=== PATIENT | female | born 1955 | race Caucasian/White ===

== ENCOUNTER 2018-06-03 17:23 | Inpatient (IN) ==
--- NOTE | 2018-06-03 18:05 | XR ---
EXAM DATE: 06/03/2018 5:59 PM EST AGE/SEX: 63 years / Female INDICATIONS: Right wrist pain after falling today. CLINICAL DATA: This is the patient's initial encounter. Patient reports that signs and symptoms have been present for 1 day and indicates a pain score of 9/10. MEDICAL/SURGICAL HISTORY: None. None. COMPARISON: No prior exams available for comparison. FINDINGS: A cast overlies the right forearm and wrist. Acute comminuted minimally displaced fracture of the rig ht distal radius is noted. There is involvement of the articular surface. There is also an acute frac ture involving the ulnar styloid process. CONCLUSION: 1. Acute comminuted minimally displaced fracture of the right distal radius with involvement of the articular surface. 2. Acute fracture involving the ulnar styloid process. Electronically signed by: Micheal Foster MD 06/03/2018 6:03 PM EST
--- NOTE | 2018-06-03 18:53 | XR ---
EXAM DATE: 06/03/2018 6:51 PM EST AGE/SEX: 63 years / Female INDICATIONS: Evaluate for pneumonia, pneumothorax and communicable diseases. Pre-op for right wrist surgery. CLINICAL DATA: This is the patient's initial encounter. Patient reports that signs and symptoms have been present for 1 day and indicates a pain score of 0/10. MEDICAL/SURGICAL HISTORY: Chronic obstructive pulmonary disease. Smoker. None. COMPARISON: No prior exams available for comparison. FINDINGS: A single AP view of the chest demonstrates the lungs to be symmetrically aerated without evidence of mass, infiltrate or effusion. The cardiomediastinal contours are unremarkable. Osseous structures a re intact. CONCLUSION: Negative examination. Electronically signed by: Micheal Foster MD 06/03/2018 6:52 PM EST
[2018-06-03 18:59] LABS: Baso # (Auto) 0.1 th/mm3 (0.0-0.2); Baso % (Auto) 0.8 % (0.0-2.0); Eos % (Auto) 0.4 % (0.0-4.0); Hematocrit 42.8 % (35.0-46.0); Hemoglobin 14.5 gm/dL (11.6-15.3); Lymph # (Auto) 1.3 th/mm3 (1.0-4.8); Lymph % (Auto) 14.7 % (9.0-44.0); Mean Corpuscular HGB Conc 33.9 % (32.0-36.0); Mean Corpuscular Volume 97.5 fL (80.0-100.0); Mean Platelet Volume 9.5 fL (7.0-11.0); Mono # (Auto) 0.3 th/mm3 (0.0-0.9); Mono % (Auto) 3.2 % (0.0-8.0); Neut # (Auto) 6.9 th/mm3 (1.8-7.7); Neut % (Auto) 80.9 % (16.0-70.0); Platelet Count 222 th/mm3 (150-450); Red Blood Count 4.39 mil/mm3 (4.00-5.30); Red Cell Distribution Width 14.8 % (11.6-17.2); White Blood Count 8.5 th/mm3 (4.0-11.0)
[2018-06-03 19:31] LABS: Calcium 8.5 mg/dL (8.5-10.1); Carbon Dioxide 27.1 meq/L (21.0-32.0); Potassium 3.8 meq/L (3.5-5.1)
--- NOTE | 2018-06-03 19:33 | P.HPFP ---
History of Present Illness Primary Care Physician: No Primary Care Physician Chief Complaint: right wrist fracture History of Present Illness: She is a right-handed female with a past medical history significant for COPD, DVT and PE, and depression who we are admitting for right radius and ulnar fractures with planned orthopedic intervention. At about 1500 today she was walking her dog and tripped over the, fell, and landed on her right hand. She had immediate pain, nausea, lightheadedness, and wavy lines in her vision. She states that she did not hit her head. She did not get up until about 15 minutes later when the nausea, lightheadedness, and visual changes had subsided. She denies her hitting her head and did not have any loss of consciousness she continued to have significant pain and presented to an urgent care clinic at about 1800. There, they splinted her right arm took an x-ray and told her to go to the hospital. In the ED plain films were obtained that showed comminuted minimally displaced fracture of the right distal radius involving articular surface. She also had a fracture of the styloid process of the ulna. She was given an dose of hydrocodone/APAP 5/325 in the ED. She does report some intermittent tingling and increased pain in the fingers at this time, but does not have numbness. She states that the wrap is currently too tight. These symptoms improved after unwrapping and rewrapping her splint. PMHx: COPD -currently on Advair. She does have a chronic cough Depression -treated with Lexapro PE/DVT following hip replacement -treated with Xarelto Arthritis Degenerative joint dz PSurgHx: Tubal ligation Hip replacement in both hips Left wrist fracture with surgical fixation Cholecystectomy Tonsillectomy PFamHx: Mother - diabetes Father - in 2009, believes cancer SocHx: Tobacco 1PPD since age 11 EtOH - occasional Drugs - denies - Diagnosis (1) Right radial fracture (2) Fracture of right ulna (3) History of venous thromboembolism (4) COPD (chronic obstructive pulmonary disease) (5) Depression Review of Systems Constitutional: Denies chills, Denies fever(s), Denies night sweats, Denies weakness Eyes: Denies change in vision (Did have leave lines in her vision for a few minutes after the fall) Cardiovascular: Denies chest pain, Denies rapid, pounding, or irregular heartbeat Respiratory: Reports cough (Chronic with no recent change), Reports shortness of breath (occasionally) Gastrointestinal: Reports nausea (Only in the 15 minutes post fall), Denies abdominal pain, Denies black, tarry stools, Denies bright, red blood in stools, Denies constipation, Denies loose stools, Denies vomiting Genitourinary: Denies blood in urine, Denies painful urination Skin/Breast: Denies lesions, Denies rash PMFSH - History History Provided By: Patient - Medical History Medical History: Medical History (Last Reviewed 06/03/18 @ 19:33 by JAIDEN Bear) COPD (chronic obstructive pulmonary disease) - Tobacco History Second Hand Smoke Exposure: No Tobacco Use In Past 30 Days: No Smoking Status: Current every day smoker Tobacco Type: Cigarettes - Alcohol History How Often Do You Have a Drink Containing Alcohol: Monthly or less - Substance Use History Substance History: No History of Abuse - Travel History Recent Travel in the [place] Within the Last 8 Weeks: No Recent Travel Out of the Country Within the Last 8 Weeks: No - Immunization History Tetanus Immunization: <5 Years Medications and Allergies Allergies Allergy/AdvReac Type Severity Reaction Status Date / Time morphine AdvReac Severe Nausea/Vomi Verified 06/03/18 21:46 ting Penicillins AdvReac Severe Nausea/Vomi Verified 06/03/18 21:46 ting Home Medications Medication Instructions Recorded Confirmed Type escitalopram oxalate [Lexapro] 10 mg PO DAILY 06/03/18 06/03/18 History fluticasone-salmeterol [Advair 1 puff INHALATION Q12H 06/03/18 06/03/18 History Diskus] rivaroxaban [Xarelto] 20 mg PO DAILY 06/03/18 06/03/18 History Exam Vital signs: Vital Signs 06/03/18 17:28 06/03/18 19:20 Temperature 98.1 F Pulse Rate 81 69 Respiratory Rate 18 16 Blood Pressure 152/99 H 158/66 H Pulse Oximetry 97 99 Intake & Output 06/03/18 06/03/18 06/04/18 06:59 18:59 06:59 Weight 89.358 kg Narrative: General: Well-developed, alert, and in no acute distress. Appears stated age HEENT: Atraumatic, PERRL, non-icteric sclera and no conjunctival injection, moist mucous membranes Neck: Supple, trachea midline Cardiac: Regular rate and rhythm without murmur Pulmonary: Non-labored breathing. Lungs clear to auscultation bilaterally with good air movement Abdomen: Normal bowel sounds, soft and non-tender without rebound or guarding Extremities: No edema, 2+ pedal pulses, capillary refill less than 2 seconds Right upper extremity: Splint in place, unwrapped and replaced during exam. There is significant swelling over the distal aspect of the forearm and wrist without any gross abnormalities. Neurovascularly intact distal to the fractures. Results - Labs Result diagrams: 06/03/18 18:50 06/03/18 18:50 Abnormal lab results 06/03/18 Range/Units 18:50 Neut % (Auto) 80.9 H (16.0-70.0) % Short CBC 06/03/18 Range/Units 18:50 WBC 8.5 (4.0-11.0) th/mm3 Hgb 14.5 (11.6-15.3) gm/dL Hct 42.8 (35.0-46.0) % Plt Count 222 (150-450) th/mm3 - Imaging Impressions Wrist X-Ray 06/03/18 17:45 CONCLUSION: 1. Acute comminuted minimally displaced fracture of the right distal radius with involvement of the articular surface. 2. Acute fracture involving the ulnar styloid process. Chest X-Ray 06/03/18 18:37 CONCLUSION: Negative examination. Caprini VTE Risk Assessment Caprini VTE Risk Assessment: Moderate/High Risk (score >= 2) Caprini Risk Assessment Model: Point Value = 1 Point Value = 2 Point Value = 3 Point Value = 5 Age 41-60 Minor surgery BMI > 25 kg/m2 Swollen legs Varicose veins or History of unexplained or recurrent spontaneous Oral contraceptives or hormone replacement Sepsis (< 1 month) Serious lung disease, including pneumonia (< 1 month) Abnormal pulmonary function Acute myocardial infarction Congestive heart failure (< 1 month) History of inflammatory bowel disease Medical patient at bed rest Age 61-74 Arthroscopic surgery Major open surgery (> 45 min) Laparoscopic surgery (> 45 min) Malignancy Confined to bed (> 72 hours) Immobilizing plaster cast Central venous access Age >= 75 History of VTE Family history of VTE Factor V Leiden Prothrombin [id number] Lupus anticoagulant Anticardiolipin antibodies Elevated serum homocysteine Heparin-induced thrombocytopenia Other congenital or acquired thrombophilia Stroke (< 1 month) Elective arthroplasty Hip, pelvis, or leg fracture Acute spinal cord injury (< 1 month) Prophylaxis Regimen: Total Risk Factor Score Risk Level Prophylaxis Regimen 0-1 Low Early ambulation 2 Moderate Order ONE of the following: *Sequential Compression Device (SCD) *Heparin 5000 units SQ BID 3-4 Higher Order ONE of the following medications: *Heparin 5000 units SQ TID *Enoxaparin/Lovenox 40 mg SQ daily (WT < 150 kg, CrCl > 30 mL/min) *Enoxaparin/Lovenox 30 mg SQ daily (WT < 150 kg, CrCl > 10-29 mL/min) *Enoxaparin/Lovenox 30 mg SQ BID (WT < 150 kg, CrCl > 30 mL/min) AND/OR *Sequential Compression Device (SCD) 5 or more Highest Order ONE of the following medications: *Heparin 5000 units SQ TID (Preferred with Epidurals) *Enoxaparin/Lovenox 40 mg SQ daily (WT < 150 kg, CrCl > 30 mL/min) *Enoxaparin/Lovenox 30 mg SQ daily (WT < 150 kg, CrCl > 10-29 mL/min) *Enoxaparin/Lovenox 30 mg SQ BID (WT < 150 kg, CrCl > 30 mL/min) AND *Sequential Compression Device (SCD) Assessment and Plan - Assessment (1) Right radial fracture Code(s): S52.91XA - Unspecified fracture of right forearm, initial encounter for closed fracture Status: Acute (2) Fracture of right ulna Code(s): S52.201A - Unspecified fracture of shaft of right ulna, initial encounter for closed fracture Status: Acute (3) History of venous thromboembolism Code(s): Z86.718 - Personal history of other venous thrombosis and embolism Status: Acute (4) COPD (chronic obstructive pulmonary disease) Code(s): J44.9 - Chronic obstructive pulmonary disease, unspecified Status: Acute (5) Depression Code(s): F32.9 - Major depressive disorder, single episode, unspecified Status : Acute - Assessment and Plan Patient is a 63-year-old woman with a past medical history significant for the DVT/PE, COPD and depression who presented with right-sided radial and ulnar fractures. We are admitting her for surgical intervention tomorrow. Fracture of the right radius and ulna -X-rays taken in the ED showed joint involvement and minimal displacement of the radial fracture -Pain scale with Percocet, and IV Dilaudid as needed after midnight -Plan for surgical intervention by Dr. Sanchez tomorrow morning. He was contacted by the ED physician. -INR is 1.1 and APTT is 31.7. This does not exclude clinically significant anticoagulation due to her Xarelto. Her last dose was this morning. History of DVT/PE -She reports his history is about 1 year ago and she has been on Xarelto since that time -Xarelto held tomorrow due to surgical intervention COPD -Continue home medication Advair 100/50 Depression -Continue home medication Lexapro Fluids: Adequate p.o. intake this evening. IV to Hep-Lock. Normal saline at 125 cc/h after midnight. Electrolytes: monitor and replete as needed Nutrition: Regular diet now. N.p.o. after midnight. GI prophylaxis: not indicated VTE prophylaxis: Took home medication Xarelto this morning. Will hold for tomorrow due to surgical intervention.
--- NOTE | 2018-06-03 19:36 | ED ---
HPI General Chief Complaint: Extremity Injury, Upper Stated Complaint: R wrist Time Seen by Provider: 06/03/18 17:32 Source: patient and family Mode of arrival: ambulatory Limitations: no limitations History of Present Illness HPI narrative: 63 yo female here for evaluation of right wrist pain. Fell and injured it today. No other injuries. Deformity and swelling per patient. Seen at local Urgent care and sent here with splint for further evaluation. Pain is 8 /10. No previous injury. Right handed dominant. No numbness, tingling, weakness. Not taken anything for the pain. Related Data Home Medications Medication Instructions Recorded Confirmed escitalopram oxalate [Lexapro] 10 mg PO DAILY 06/03/18 06/03/18 fluticasone-salmeterol [Advair 1 puff INHALATION Q12H 06/03/18 06/03/18 Diskus] rivaroxaban [Xarelto] 20 mg PO DAILY 06/03/18 06/03/18 Allergies Allergy/AdvReac Type Severity Reaction Status Date / Time No Known Allergies Allergy Verified 06/03/18 17:30 Review of Systems ROS: all other systems reviewed are negative [facility] Medical History Medical History COPD (chronic obstructive pulmonary disease) (Acute) Social History Social History Substance History: No History of Abuse Second Hand Smoke Exposure: No Smoking Status: Current every day smoker Tobacco Type: Cigarettes How Often Do You Have a Drink Containing Alcohol: Monthly or less Recent Travel in [facility] within the Last 8 Weeks: No Recent Out of Country Travel within the Last 8 Weeks: No Immunization History Tetanus Immunization: <5 Years Exam Narrative Exam Narrative: GENERAL: Well appearing. SKIN: Focused skin assessment warm/dry. HEAD: Atraumatic. Normocephalic. EYES: Pupils equal and round. No scleral icterus. No injection or drainage. ENT: No nasal bleeding or discharge. Mucous membranes pink and moist. NECK: Trachea midline. No JVD. CARDIOVASCULAR: Regular rate and rhythm. No murmur appreciated. RESPIRATORY: No accessory muscle use. Clear to auscultation. Breath sounds equal bilaterally. GASTROINTESTINAL: Abdomen soft, non-tender, nondistended. Hepatic and splenic margins not palpable. MUSCULOSKELETAL: No obvious deformities. No clubbing. No cyanosis. No edema. Patient has a splint to the right arm and wrist. 2+ pulses bilaterally. Sensation intact bilaterally. Full range of motion of all digits. NEUROLOGICAL: Awake and alert. No obvious cranial nerve deficits. Motor grossly within normal limits. Normal speech. PSYCHIATRIC: Appropriate mood and affect; insight and judgment normal. Course Initial Documented Vital Signs Temperature 98.1 F 06/03/18 17:28 Pulse Rate 81 06/03/18 17:28 Respiratory Rate 18 06/03/18 17:28 Blood Pressure 152/99 H 06/03/18 17:28 Pulse Oximetry 97 06/03/18 17:28 Last Documented Vital Signs Temperature 98.1 F 06/03/18 17:28 Pulse Rate 69 06/03/18 19:20 Respiratory Rate 16 06/03/18 19:20 Blood Pressure 158/66 H 06/03/18 19:20 Pulse Oximetry 99 06/03/18 19:20 Medical Decision Making MDM Narrative Medical decision making narrative: 63-year-old female that presents to the ED for evaluation of right wrist injury. Patient was properly examined and was found to have signs and symptoms consistent with fracture.X-ray was done here and did show what appears to be comminuted fracture. Compared to the xray done at urgent care appears to be in better alignment. Consult was placed to orthopedic surgeon Dr. Sanchez who recommends admission to medicine, n.p.o. after midnight and surgery tomorrow morning. Patient was told this and agrees with plan. Patient was admitted to the residents were agree admission to their service. Medical Screen Exam Complete: Yes Emergency Medical Condition: Yes Differential Diagnosis Differential Diagnosis: Fracture versus sprain versus strain versus bruise versus contusion Medical Records Medical records reviewed: Yes I reviewed the patient's medical records. Lab Data Lab results reviewed: Yes I reviewed the patient's lab results. Result diagrams: 06/03/18 18:50 06/03/18 18:50 Lab Results 06/03/18 06/03/18 Range/Units 18:50 18:50 WBC 8.5 (4.0-11.0) th/mm3 RBC 4.39 (4.00-5.30) mil/mm3 Hgb 14.5 (11.6-15.3) gm/dL Hct 42.8 (35.0-46.0) % MCV 97.5 (80.0-100.0) fL MCH 33.0 (27.0-34.0) pg MCHC 33.9 (32.0-36.0) % RDW 14.8 (11.6-17.2) % Plt Count 222 (150-450) th/mm3 MPV 9.5 (7.0-11.0) fL Neut % (Auto) 80.9 H (16.0-70.0) % Lymph % (Auto) 14.7 (9.0-44.0) % [place] % (Auto) 3.2 (0.0-8.0) % Eos % (Auto) 0.4 (0.0-4.0) % Baso % (Auto) 0.8 (0.0-2.0) % Neut # (Auto) 6.9 (1.8-7.7) th/mm3 Lymph # (Auto) 1.3 (1.0-4.8) th/mm3 [place] # (Auto) 0.3 (0.0-0.9) th/mm3 Eos # (Auto) 0.0 (0.0-0.4) th/mm3 Baso # (Auto) 0.1 (0.0-0.2) th/mm3 WBC Differential . Differential Comment Auto diff final Sodium 140 (136-145) meq/L Potassium 3.8 (3.5-5.1) meq/L Chloride 106 (98-107) meq/L Carbon Dioxide 27.1 (21.0-32.0) meq/L Anion Gap 7 (5-15) meq/L BUN 15 (7-18) mg/dL Creatinine 0.76 (0.50-1.00) mg/dL Estimated GFR 77 L (>89) mL/min Random Glucose 98 (74-106) mg/dL Calcium 8.5 (8.5-10.1) mg/dL Imaging Data Attestation: I personally reviewed and interpreted this imaging study as follows : Radiologist's impression: Wrist X-Ray 06/03/18 17:45 CONCLUSION: 1. Acute comminuted minimally displaced fracture of the right distal radius with involvement of the articular surface. 2. Acute fracture involving the ulnar styloid process. Chest X-Ray 06/03/18 18:37 CONCLUSION: Negative examination. ECG Data Attestation: I personally reviewed and interpreted this ECG as follows: Interpretation: EKG shows sinus rhythm with no sign of acute ischemia and arrhythmia read by me and attending. Discharge Plan Discharge Disposition Patient Disposition: 30 Still Patient Discharge Details Diagnosis: Fracture of wrist, closed Physicians Team ED Provider: Kobe Torres ED Midlevel Provider: Ronni Sanchez Primary Care Provider: Primary Care Reena Johnson Rxs /Orders / Referrals /Forms Prescriptions: No Action escitalopram oxalate [Lexapro] 10 mg Tablet 10 mg PO DAILY RF: 0 rivaroxaban [Xarelto] 20 mg Tablet 20 mg PO DAILY RF: 0 fluticasone-salmeterol [Advair Diskus] 100-50 mcg/dose Blister With Device 1 puff INHALATION Q12H RF: 0 Discharge Interventions Interventions: Vital Signs Last Done: 06/03/18 19:20 Status ED Status: Admitted Patient
[2018-06-03] MEDS ORDERED: Acetaminophen 325 MG Tablet PO PRN (19:48)
[2018-06-03] MEDS ORDERED: Morphine Sulfate Inj 2 MG/ML Vial IV.PUSH PRN ×2 (19:51→23:59)
[2018-06-03 20:06] LABS: Activated Partial Thrombo Time 31.7 sec (23.4-31.7); INR 1.1 Ratio; Prothrombin Time 11.6 sec (9.8-11.6)
[2018-06-03] MEDS ORDERED: Non-Formulary Drug (Fluticasone-Salmeterol [Advair Diskus] 1 PUFF) INHALATION SCH (21:45)
[2018-06-03] MEDS: Senna/Docusate Sodium 8.6/50 MG Tablet PO SCH (23:05)
[2018-06-03] MEDS ORDERED: Metoprolol Tartrate 25 MG Tablet PO ONE (23:12)
[2018-06-03] MEDS ORDERED: Chlorhexidine Gluconate 2% 1 Pack (2 Cloths) TOPICAL ONE (23:12)
[2018-06-03] MEDS ORDERED: Influenza (Quadrivalent) Vaccine 0.5 ML Syringe IM ONE (23:15)
[2018-06-03] MEDS ORDERED: Sodium Chlor 0.9% Inj 500 ML IV.SIG SCH (23:45)
[2018-06-03] MEDS: Budesonide-Formoterol 80/4.5 MCG 6.9 GM Inhaler INH SCH (23:59)
[2018-06-04] MEDS: Escitalopram 10 MG Tablet PO SCH ×2 (07:52→14:21)
[2018-06-04] MEDS: Budesonide-Formoterol 80/4.5 MCG 6.9 GM Inhaler INH SCH ×3 (07:53→20:03)
[2018-06-04] MEDS: Senna/Docusate Sodium 8.6/50 MG Tablet PO SCH ×3 (07:53→20:03)
[2018-06-04] MEDS ORDERED: ceFAZolin 1 GM Premix Inj 2 GM/100 ML FROZ.PIGGY IV.SIG ONE (10:12)
[2018-06-04] MEDS ORDERED: Sugammadex Inj 200 MG/2 ML Vial IV.PUSH ONE (11:53)
[2018-06-04] MEDS ORDERED: Zolpidem Tartrate 5 MG Tablet PO PRN (12:09)
[2018-06-04] MEDS ORDERED: Promethazine 25 MG Supp RECTAL PRN (12:09)
[2018-06-04] MEDS ORDERED: Post-op Orders (for Pharmacy) OTHER STA (12:09)
[2018-06-04] MEDS ORDERED: Bisacodyl 10 MG Supp RECTAL PRN (12:09)
--- NOTE | 2018-06-04 12:17 | P.HPFP ---
History of Present Illness Primary Care Physician: No Primary Care Physician Chief Complaint: right wrist fracture History of Present Illness: reviewed and discussed resident histories and ROS and documented in H&P on . Interval history: doing well this morning, anxious to have her surgery. She is thirsty. she is moving her fingers but does have some pain with it. no f/c/n/v/d. - Diagnosis (1) Right radial fracture (2) Fracture of right ulna (3) History of venous thromboembolism (4) COPD (chronic obstructive pulmonary disease) (5) Depression Inpatient Certification: I certify that the inpatient services were ordered in accordance with Medicare regulations governing the order. This includes certification that hospital inpatient services are reasonable and necessary and in the case of services not specified as inpatient-only under 42 CFR 419.22(n), that they are appropriately provided as inpatient services in accordance to with the 2-midnight benchmark under 43 CFR 412.3(e) Estimated Total Length of Stay (Days): 2 Plans for Post Hospital Care: Home [facility] - History History Provided By: Patient - Medical History Medical History: Medical History (Last Updated 06/03/18 @ 22:40 by Lashonda Robledo RN) Anxiety Bronchial spasms COPD (chronic obstructive pulmonary disease) Lower extremity deep venous thrombosis Pulmonary embolism - Surgical History Surgical History: Surgical History (Last Reviewed 06/03/18 @ 22:39 by Lashonda Robledo RN) History of tonsillectomy History of total left hip arthroplasty History of total right hip arthroplasty History of tubal ligation - Family History Family History: Family History (Last Reviewed 06/03/18 @ 22:39 by Lashonda Robledo RN) Other Family history of acute myocardial infarction Family history of cancer Family history of diabetes mellitus - Tobacco History Second Hand Smoke Exposure: Yes Tobacco Use In Past 30 Days: Yes Smoking Status: Current every day smoker Tobacco Type: Cigarettes - Alcohol History How Often Do You Have a Drink Containing Alcohol: Monthly or less - Substance Use History Substance History: No History of Abuse - Travel History Recent Travel in the [place] Within the Last 8 Weeks: No Recent Travel Out of the Country Within the Last 8 Weeks: No - Immunization History Tetanus Immunization: <5 Years Hx Influenza Vaccine This Season: No Medications and Allergies Active Medications: Active Medications Acetaminophen (Tylenol) 650 mg PO Q4H PRN PRN Reason: Temp > 100.4 Hydrocodone Bitart/Acetaminophen ([place] 10/325) 1 tab PO Q6H PRN PRN Reason: PAIN LESS THAN 5 ON SCALE Al Hydroxide/Mg Hydroxide (Milk Of Magnesia Liq) 30 ml PO Q12H PRN PRN Reason: Mild Constipation Al Hydroxide/Mg Hydroxide (Milk Of Magnesia Liq) 30 ml PO Q12H PRN PRN Reason: Mild Constipation Bisacodyl (Dulcolax Supp) 10 mg RECTAL DAILY PRN PRN Reason: SEVERE CONSITIPATION Budesonide/Formoterol Fumarate (Symbicort 80/4.5 Mcg Inh) 2 puff INH Q12HR MALIK Last Admin: 06/04/18 07:53 Dose: 2 puff Diphenhydramine HCl (Benadryl) 25 mg PO Q6H PRN PRN Reason: ITCHING Escitalopram Oxalate (Lexapro) 10 mg PO DAILY [facility] Last Admin: 06/04/18 07:52 Dose: 10 mg Folic Acid (Folic Acid) 1 mg PO DAILY MALIK Lactated Ringer's (Lr 1000 Ml Inj) 1,000 mls @ 30 mls/hr IV.SIG .Q24H MALIK Stop: 06/04/18 23:14 Sodium Chloride (Ns Inj) 500 mls @ 30 mls/hr IV.SIG .Q10H MALIK Clindamycin/Sodium Chloride (Cleocin 600 Mg/Ns Premix) 600 mg in 50 mls @ 100 mls/hr IV.SIG Q8H MALIK Lactated Ringer's (Lr 1000 Ml Inj) 1,000 mls @ 100 mls/hr IV.CONT .Q10H MALIK Lactulose (Lactulose Liq) 30 ml PO DAILY PRN PRN Reason: SEVERE CONSITIPATION Miscellaneous Information (Misc Post-Op Orders (For Pharmacy)) 0 each OTHER STAT STA Stop: 06/04/18 12:10 Multivitamins/Minerals (Theragran-M) 1 tab PO DAILY MALIK Ondansetron HCl (Zofran Inj) 4 mg IV.PUSH Q6H PRN PRN Reason: NAUSEA OR VOMITING Ondansetron HCl (Zofran Odt) 4 mg PO Q6H PRN PRN Reason: NAUSEA OR VOMITING Ondansetron HCl (Zofran Inj) 4 mg IV.PUSH Q6H PRN PRN Reason: NAUSEA OR VOMITING Oxycodone/Acetaminophen (Percocet 5/325 Mg) 1 tab PO Q4H PRN PRN Reason: SEE DOSE INSTRUCTIONS Oxycodone/Acetaminophen (Percocet 5/325 Mg) 2 tab PO Q4H PRN PRN Reason: SEE DOSE INSTRUCTIONS Last Admin: 06/04/18 07:16 Dose: 2 tab Pantoprazole Sodium (Protonix) 40 mg PO DAILY [facility] Promethazine HCl (Phenergan) 25 mg PO Q6H PRN PRN Reason: NAUSEA OR VOMITING Promethazine HCl (Phenergan Supp) 25 mg RECTAL Q6H PRN PRN Reason: NAUSEA OR VOMITING Senna/Docusate Sodium (Ankita-Colace) 1 tab PO BID MALIK Last Admin: 06/04/18 07:53 Dose: 1 tab Senna/Docusate Sodium (Ankita-Colace) 1 tab PO BID [facility] Sennosides (Senokot) 17.2 mg PO Q12H PRN PRN Reason: Moderate Constipation Sodium Chloride (Ns Flush) 2 ml IV.FLUSH BID [facility] Sodium Chloride (Ns Flush) 2 ml IV.FLUSH PRN PRN PRN Reason: FLUSH AFTER USING IV ACCESS Thiamine HCl (Vitamin B1) 100 mg PO DAILY MALIK Zolpidem Tartrate (Ambien) 5 mg PO HS PRN PRN Reason: INSOMNIA Allergies Allergy/AdvReac Type Severity Reaction Status Date / Time morphine AdvReac Severe Nausea/Vomi Verified 06/03/18 21:46 ting Penicillins AdvReac Severe Nausea/Vomi Verified 06/03/18 21:46 ting Home Medications Medication Instructions Recorded Confirmed Type escitalopram oxalate [Lexapro] 10 mg PO DAILY 06/03/18 06/03/18 History fluticasone-salmeterol [Advair 1 puff INHALATION Q12H 06/03/18 06/03/18 History Diskus] rivaroxaban [Xarelto] 20 mg PO DAILY 06/03/18 06/03/18 History Exam Vital signs: Vital Signs 06/03/18 17:28 06/03/18 19:20 06/03/18 21:10 Temperature 98.1 F 98.7 F Pulse Rate 81 69 72 Respiratory Rate 18 16 18 Blood Pressure 152/99 H 158/66 H 136/77 Pulse Oximetry 97 99 96 06/04/18 00:00 06/04/18 04:00 06/04/18 08:00 Temperature 98.4 F 98.4 F 98.4 F Pulse Rate 64 63 70 Respiratory Rate Blood Pressure 138/78 130/70 123/75 Pulse Oximetry 95 93 L 94 L Intake & Output 06/03/18 06/04/18 06/04/18 18:59 06:59 18:59 Intake Total 700 / 700 Output Total 50 / 50 Balance 650 / 650 Weight 89.358 kg 89.4 kg Intake: IV 100 / 100 Ancef 1 GM Premix Inj 2 gm In 100 / 100 100 ml @ 0 mls/hr IV.SIG .STK- MED ONE Rx#:[id number] Anesthesia Amount 600 / 600 Output: Estimated Blood Loss 50 / 50 Other: # Voids 2 Date of Last Bowel Movement 06/02/18 06/02/18 Weight On Admission 89.4 kg - Constitutional no acute distress - Routine HEENT Exam Head: Present: normocephalic, atraumatic Eye: Present: EOMI, PERRL ENT: Present: mucous membranes moist - Routine Neck Exam Present: supple - Routine Respiratory Exam Present: CTA bilaterally. Absent: accessory muscle use, rhonchi, wheezes, crackles - Routine Cardiovascular Exam Present: RRR, S1, S2 - Routine Abdominal Exam Present: soft, normoactive bowel sounds - Routine Extremities Exam Absent: cyanosis, clubbing, edema - Routine Neurological Exam moving all fingers distal to splint, good capillary refill, good sensation to finger tips, can make "ok sign", "thumbs up", and "peace sign." Results - Labs Result diagrams: 06/03/18 18:50 06/03/18 18:50 Abnormal lab results 06/03/18 06/03/18 Range/Units 18:50 18:50 Neut % (Auto) 80.9 H (16.0-70.0) % Estimated GFR 77 L (>89) mL/min Short CBC 06/03/18 Range/Units 18:50 WBC 8.5 (4.0-11.0) th/mm3 Hgb 14.5 (11.6-15.3) gm/dL Hct 42.8 (35.0-46.0) % Plt Count 222 (150-450) th/mm3 BMP 11/17/18 18:50 Sodium 140 Potassium 3.8 Chloride 106 Carbon Dioxide 27.1 BUN 15 Creatinine 0.76 Calcium 8.5 - Imaging Impressions Wrist X-Ray 06/03/18 17:45 CONCLUSION: 1. Acute comminuted minimally displaced fracture of the right distal radius with involvement of the articular surface. 2. Acute fracture involving the ulnar styloid process. Chest X-Ray 06/03/18 18:37 CONCLUSION: Negative examination. Caprini VTE Risk Assessment Caprini VTE Risk Assessment: Moderate/High Risk (score >= 2) Caprini Risk Assessment Model: Point Value = 1 Point Value = 2 Point Value = 3 Point Value = 5 Age 41-60 Minor surgery BMI > 25 kg/m2 Swollen legs Varicose veins or History of unexplained or recurrent spontaneous Oral contraceptives or hormone replacement Sepsis (< 1 month) Serious lung disease, including pneumonia (< 1 month) Abnormal pulmonary function Acute myocardial infarction Congestive heart failure (< 1 month) History of inflammatory bowel disease Medical patient at bed rest Age 61-74 Arthroscopic surgery Major open surgery (> 45 min) Laparoscopic surgery (> 45 min) Malignancy Confined to bed (> 72 hours) Immobilizing plaster cast Central venous access Age >= 75 History of VTE Family history of VTE Factor V Leiden Prothrombin [id number] Lupus anticoagulant Anticardiolipin antibodies Elevated serum homocysteine Heparin-induced thrombocytopenia Other congenital or acquired thrombophilia Stroke (< 1 month) Elective arthroplasty Hip, pelvis, or leg fracture Acute spinal cord injury (< 1 month) Prophylaxis Regimen: Total Risk Factor Score Risk Level Prophylaxis Regimen 0-1 Low Early ambulation 2 Moderate Order ONE of the following: *Sequential Compression Device (SCD) *Heparin 5000 units SQ BID 3-4 Higher Order ONE of the following medications: *Heparin 5000 units SQ TID *Enoxaparin/Lovenox 40 mg SQ daily (WT < 150 kg, CrCl > 30 mL/min) *Enoxaparin/Lovenox 30 mg SQ daily (WT < 150 kg, CrCl > 10-29 mL/min) *Enoxaparin/Lovenox 30 mg SQ BID (WT < 150 kg, CrCl > 30 mL/min) AND/OR *Sequential Compression Device (SCD) 5 or more Highest Order ONE of the following medications: *Heparin 5000 units SQ TID (Preferred with Epidurals) *Enoxaparin/Lovenox 40 mg SQ daily (WT < 150 kg, CrCl > 30 mL/min) *Enoxaparin/Lovenox 30 mg SQ daily (WT < 150 kg, CrCl > 10-29 mL/min) *Enoxaparin/Lovenox 30 mg SQ BID (WT < 150 kg, CrCl > 30 mL/min) AND *Sequential Compression Device (SCD) Assessment and Plan - Assessment (1) Right radial fracture Code(s): S52.91XA - Unspecified fracture of right forearm, initial encounter for closed fracture Status: Acute (2) Fracture of right ulna Code(s): S52.201A - Unspecified fracture of shaft of right ulna, initial encounter for closed fracture Status: Acute (3) History of venous thromboembolism Code(s): Z86.718 - Personal history of other venous thrombosis and embolism Status: Acute (4) COPD (chronic obstructive pulmonary disease) Code(s): J44.9 - Chronic obstructive pulmonary disease, unspecified Status: Acute (5) Depression Code(s): F32.9 - Major depressive disorder, single episode, unspecified Status : Acute - Assessment and Plan Patient is a 63-year-old woman with a past medical history significant for the DVT/PE, COPD and depression who presented with right-sided radial and ulnar fractures. Comminuted fracture of the right radius and ulnar styloid - Orthopedics to take for surgery today per report. History of DVT/PE - Restart xarelto tomorrow, early ambulation COPD -Continue home medication Advair 100/50 Depression/Anxiety -Continue home medication Lexapro tobacco use denied need for nictotine patch today. Counseled on this being a good time to quit as she will be without Fluids: likely PO after surgery. Electrolytes: monitor and replete as needed Nutrition: Regular diet as tolerated after surgery GI prophylaxis: not indicated VTE prophylaxis: Took xarelto yesterday, restart tomorrow H&P: Quality - VTE Deep Vein Thrombosis/Pulmonary Embolism Present on Admission: No
[2018-06-04] MEDS ORDERED: fentaNYL Citrate Inj 100 MCG/2 ML Ampul ONE (12:31)
[2018-06-04] MEDS ORDERED: *HYDROmorphone PF Inj 1 MG/ML Ampul PERIprocedural Use ONLY ONE (12:45)
--- NOTE | 2018-06-04 14:24 | MP ---
cc: Michi Sanchez MD DATE OF OPERATION: 06/04/2018 POSTOPERATIVE DIAGNOSIS: Right intra-articular distal radius fracture. POSTOPERATIVE DIAGNOSIS: Right intra-articular distal radius fracture. PROCEDURE PERFORMED: Open reduction internal fixation of right intraarticular distal radius fracture, greater than 3 intra-articular fragments. SURGEON: Michi Sanchez MD CASH MANAGEMENT ASSOCIATE: JAIDEN Sheffield ANESTHESIA: General. ESTIMATED BLOOD LOSS: Less than 50 mL. TOURNIQUET TIME: Zero minutes. COMPLICATIONS: None. IMPLANTS USED: Synthes. INDICATIONS: The patient is a 63-year-old female who fell sustaining a displaced comminuted right intraarticular distal radius fracture. The patient presented to [facility]. X-rays confirmed the above-named findings. Orthopedic surgery consultation, was counseled as to the risks, benefits and alternatives to the above-named surgical procedure, and she did wish to proceed with surgery. PROCEDURE IN DETAIL: Written consent was obtained. The patient was identified and taken to the operating room. She was placed supine on the operating table. General anesthesia was administered as well as 2 g of IV Ancef. The right upper extremity was prepped and draped using isopropyl alcohol, Hibiclens solution, and DuraPrep solution. After a timeout was performed, a longitudinal incision was made over the volar aspect of the right wrist. The flexor carpi radialis tendon sheath was incised, and the pronator musculature was elevated off the radial aspect of the distal radius. An open reduction was performed, and the joint surface was reconstructed. Subsequently, a Synthes volar distal radius locking plate was applied to the volar aspect of the distal radius. A combination of both locking and nonlocking screws were used for fixation. Fluoroscopic imaging confirmed hardware placement and fracture reduction. Surgical wound was thoroughly irrigated with sterile saline solution. Subcutaneous layer was closed with 3-0 Vicryl suture and skin incision closed with Dermabond. Sterile dressing applied. The patient was placed in a well-padded splint, tolerated the procedure well with no intraoperative complications noted. Huber Renteria, Physician Information Assurance Manager-Certified, was scrubbed and present during the entire procedure to include patient positioning and the procedure itself. The medical necessity of physician expanded duty dental assistant was indicated in this case due to the complexity of the procedure. He assisted with appropriate manipulation of the arm and also retraction of muscles, tendons, bones, neurovascular structures. He assisted with both maintaining and achieving fracture reduction along with implantation of the internal fixation device. MD KRISTEN Membreno/kasey , 12:06 PM , 12:12 PM
[2018-06-04] MEDS: Clindamycin 600 mg/NS Premix 600 MG/50 ML PIGGYBACK IV.SIG SCH ×2 (14:25→22:22)
--- NOTE | 2018-06-04 14:33 | MB ---
cc: Michi Sanchez MD DATE: 06/04/2018 REASON FOR CONSULTATION: Right distal radius fracture. HISTORY OF PRESENT ILLNESS: The patient is a 63-year-old female who had a trip and fall injury onto the right wrist. She had severe onset of pain, swelling, deformity after her injury. She denies hitting her head. Denies loss of consciousness. Pain is severe and constant, throbbing, worse with any movement. No numbness or tingling. No referred symptoms. X-rays confirmed evidence of a displaced comminuted right intraarticular distal radius fracture. She was admitted to the medical service. Orthopedic surgery was consulted for further evaluation and management of the injury condition. PAST MEDICAL HISTORY: Positive for COPD. SOCIAL HISTORY: She denies substance abuse. She smokes 1 pack a day, has done so for many years. No drugs. No alcohol. FAMILY HISTORY: Reviewed and noncontributory. MEDICATIONS: Include: 1. Lexapro. 2. Advair. 3. Xarelto. ALLERGIES: SHE HAS NO KNOWN DRUG ALLERGIES. REVIEW OF SYSTEMS: Negative for 10 point systems other than HPI. PHYSICAL EXAMINATION: GENERAL: Awake, alert, lying in bed, in no acute distress. HEENT: Normocephalic, atraumatic. Pupils round. Extraocular muscles intact. NECK: Supple. LUNGS: Clear. HEART: Regular rate and rhythm. ABDOMEN: Soft, nontender. EXTREMITIES: Right upper extremity has swelling, deformity, ecchymosis. Tenderness to palpation in the region of the distal radius. She has brisk capillary refill. She can flex her digits, but with limitations related to pain. VITAL SIGNS: Temperature is 98.1, pulse 81, respirations 18, blood pressure 152/99. DIAGNOSTIC DATA: X-rays right wrist shows a comminuted displaced right intraarticular distal radius fracture. IMPRESSION: This patient is a 63-year-old female, status post fall, right displaced comminuted intraarticular distal radius fracture. PLAN: I discussed the differential diagnosis and treatment options with the patient. These include operative treatment versus surgery. Surgery will consist of open reduction and internal fixation. The risks of surgery were discussed, which include, but are not limited to bleeding, infection, damage to nerves and blood vessels, pain, stiffness, failure of hardware, blood clots, pulmonary embolism. The patient's pain is severe. After risks and benefits were reviewed, she did wish to proceed with surgery. Written consent has been obtained. The surgical site has been marked. MD KRISTEN Membreno/kala , 12:08 PM , 12:16 PM
--- NOTE | 2018-06-04 14:46 | XR ---
EXAM DATE: 06/04/2018 2:42 PM EST AGE/SEX: 63 years / Female INDICATIONS: ORIF right wrist. CLINICAL DATA: This is the patient's initial encounter. Patient reports that signs and symptoms have been present for 1 day and indicates a pain score of Nonresponsive. MEDICAL/SURGICAL HISTORY: Non-responsive. Non-responsive. COMPARISON: No prior exams available for comparison. FINDINGS: The patient is status post right ORIF of right distal radius with hardware in good position. Ulnar st yloid process fracture is again noted. CONCLUSION: Status post ORIF of right distal radial fracture with hardware in good position. Electronically signed by: Micheal Foster MD 06/04/2018 2:45 PM EST
--- NOTE | 2018-06-04 16:33 | ECG ---
Date Performed: 06/03/2018 Time Performed: 19:00:28 PTAGE: 63 years EKG: Sinus rhythm NORMAL ECG INTERPRETATION BASED ON A DEFAULT AGE OF 40 YEARS NO PREVIOUS TRACING DOCTOR: Albino Monique Interpretating Date/Time 06/04/2018 16:32:22
[2018-06-04] MEDS ORDERED: Senna/Docusate Sodium 8.6/50 MG Tablet PO SCH (21:00)
[2018-06-05] MEDS: Clindamycin 600 mg/NS Premix 600 MG/50 ML PIGGYBACK IV.SIG SCH (05:10)
[2018-06-05 05:37] VITALS: RESP 18
[2018-06-05 06:07] LABS: Hematocrit 37.9 % (35.0-46.0); Hemoglobin 12.9 gm/dL (11.6-15.3)
[2018-06-05 06:27] LABS: Calcium 8.5 mg/dL (8.5-10.1); Potassium 4.5 meq/L (3.5-5.1)
[2018-06-05] MEDS ORDERED: Multivitamin/Minerals Therapeutic Tablet PO SCH (09:00)
[2018-06-05] MEDS ORDERED: Folic Acid 1 MG Tablet PO SCH (09:00)
[2018-06-05 09:07] VITALS: BP 117/67; PULSE 66; TEMP 97.4; O2SAT 93
[2018-06-05] MEDS: Escitalopram 10 MG Tablet PO SCH (09:14)
--- NOTE | 2018-06-05 09:37 | P.PNOP ---
Subjective Interval history: pain tolerable. Physical Exam Vital signs: Vital Signs 06/04/18 12:22 06/04/18 12:30 06/04/18 12:45 Temperature 98.6 F Pulse Rate 90 96 H 92 H Respiratory Rate 11 L 15 15 Blood Pressure 125/58 L 127/60 140/82 Pulse Oximetry 90 L 96 96 06/04/18 13:00 06/04/18 13:15 06/04/18 13:30 Temperature Pulse Rate 86 84 83 Respiratory Rate 16 16 16 Blood Pressure 144/74 H 144/74 H 143/72 H Pulse Oximetry 94 L 95 93 L 06/04/18 13:40 06/04/18 16:00 06/04/18 19:18 Temperature 98.5 F 98.4 F Pulse Rate 83 84 Respiratory Rate 15 17 18 Blood Pressure 143/72 H 121/70 Pulse Oximetry 90 L 92 L 06/04/18 19:51 06/05/18 00:00 06/05/18 04:00 Temperature 99.1 F 98.6 F 98.4 F Pulse Rate 71 70 69 Respiratory Rate 18 17 18 Blood Pressure 115/65 110/58 L 119/71 Pulse Oximetry 95 93 L 94 L 06/05/18 08:00 Temperature 97.4 F L Pulse Rate 66 Respiratory Rate 18 Blood Pressure 117/67 Pulse Oximetry 93 L Intake & Output 06/04/18 06/05/18 06/05/18 18:59 06:59 18:59 Intake Total 750 / 750 2049 1000 / 1000 Output Total 50 / 50 Balance 700 / 700 2049 1000 / 1000 Weight 89.4 kg Intake: IV 150 / 150 2049 1000 / 1000 LR 1000 mL Inj 1,000 ML @ 100 1000 / 1000 1000 / 1000 mls/hr IV.CONT .Q10H MALIK Rx#: [id number] Cleocin 600 mg/NS Premix 600 mg 50 / 50 1050 / 1050 In 50 ml @ 100 mls/hr IV.SIG Q8H MALIK Rx#:[id number] Ancef 1 GM Premix Inj 2 gm In 100 / 100 100 ml @ 0 mls/hr IV.SIG .STK- MED ONE Rx#:[id number] Anesthesia Amount 600 / 600 Output: Estimated Blood Loss 50 / 50 Other: # Voids 7 Date of Last Bowel Movement 06/02/18 06/02/18 # Bowel Movements 3 Narrative: sitting in chair, nad dressing/splint c/d/i nvi sensation intact cap refill able to move fingers Results - Labs CBC & Chem 7: 06/05/18 05:11 06/05/18 05:11 Laboratory Results - last 24 hr 06/04/18 06/05/18 06/05/18 14:10 05:11 05:11 Hgb 12.9 Hct 37.9 Sodium 140 Potassium 4.5 Chloride 105 Carbon Dioxide 29.0 Anion Gap 6 BUN 17 Creatinine 0.77 Estimated GFR 75 L Random Glucose 99 Calcium 8.5 Vitamin D 25-Hydroxy 9.6 L - Imaging Impressions Wrist X-Ray 06/04/18 00:00 CONCLUSION: Status post ORIF of right distal radial fracture with hardware in good position. Assessment and Plan - Ortho Post Op Day # 1 - Assessment and Plan s/p ORIF R distal radius fracture POD#1 (06/04/18) nwb maintain splint ROM of fingers d/c planning - ortho cleared lives in [place] - please provide copy of xrays and op note f/up ortho in 2 weeks, [address] Sanchez if still in town.
--- NOTE | 2018-06-05 10:51 | P.PNFP ---
Subjective Interval history: Ms. Butler had no acute events overnight. She is POD#1 after ORIF of right distal radius. She can move her fingers of her right hand feels no residual numbness or tingling. Her pain is controlled on Percocet and we will send her home with a small supply. And surgery has cleared her for discharge today. She is ambulating, voiding, and had 3 bowel movements overnight. Discussed her low vitamin D levels and need to supplement vitamin D and calcium on discharge. We discussed her need to follow-up with her primary care doctor in [place] in 1 week, established with an orthopedist and see him/her in 2 weeks, and we also discussed possible smoking cessation but she appears to be pre- contemplative. She might need a more complete workup for osteoporosis on return home. Denies chest pain, shortness of breath, nausea, vomiting, diarrhea , fever, chills, abdominal pain and leg pain. <Rashi Lam III - 06/05/18 10:50> Results - Labs Result diagrams: 06/05/18 05:11 06/05/18 05:11 <Marcus Milligna - 06/05/18 15:26> Abnormal lab results 06/04/18 06/05/18 Range/Units 14:10 05:11 Estimated GFR 75 L (>89) mL/min Vitamin D 25-Hydroxy 9.6 L (30-100) ng/mL Short CBC 06/05/18 Range/Units 05:11 Hgb 12.9 (11.6-15.3) gm/dL Hct 37.9 (35.0-46.0) % [facility] 06/05/18 05:11 Sodium 140 Potassium 4.5 Chloride 105 Carbon Dioxide 29.0 BUN 17 Creatinine 0.77 Calcium 8.5 <Marcus Milligan - 06/05/18 15:26> Abnormal lab results 06/04/18 06/05/18 Range/Units 14:10 05:11 Estimated GFR 75 L (>89) mL/min Vitamin D 25-Hydroxy 9.6 L (30-100) ng/mL Short CBC 06/05/18 Range/Units 05:11 Hgb 12.9 (11.6-15.3) gm/dL Hct 37.9 (35.0-46.0) % [facility] 06/05/18 05:11 Sodium 140 Potassium 4.5 Chloride 105 Carbon Dioxide 29.0 BUN 17 Creatinine 0.77 Calcium 8.5 <Rashi Lam III - 06/05/18 10:50> - Imaging Impressions Wrist X-Ray 06/04/18 00:00 CONCLUSION: Status post ORIF of right distal radial fracture with hardware in good position. <Rashi Lam III H - 06/05/18 10:50> Physical Exam Vital signs: Vital Signs 06/04/18 16:00 06/04/18 19:18 06/04/18 19:51 Temperature 98.4 F 99.1 F Pulse Rate 84 71 Respiratory Rate 17 18 18 Blood Pressure 121/70 115/65 Pulse Oximetry 92 L 95 06/05/18 00:00 06/05/18 04:00 06/05/18 08:00 Temperature 98.6 F 98.4 F 97.4 F L Pulse Rate 70 69 66 Respiratory Rate 17 18 18 Blood Pressure 110/58 L 119/71 117/67 Pulse Oximetry 93 L 94 L 93 L Intake & Output 06/04/18 06/05/18 06/05/18 18:59 06:59 18:59 Intake Total 750 / 750 2049 / 2049 1000 / 1000 Output Total 50 / 50 Balance 700 / 700 2049 1000 / 1000 Weight 89.4 kg Intake: IV 150 / 150 2049 1000 / 1000 LR 1000 mL Inj 1,000 ML @ 100 1000 / 1000 1000 / 1000 mls/hr IV.CONT .Q10H [facility] Rx#: [id number] Cleocin 600 mg/NS Premix 600 mg 50 / 50 1050 / 1050 In 50 ml @ 100 mls/hr IV.SIG Q8H [facility] Rx#:[id number] Ancef 1 GM Premix Inj 2 gm In 100 / 100 100 ml @ 0 mls/hr IV.SIG .STK- [facility] Rx#:[id number] Anesthesia Amount 600 / 600 Output: Estimated Blood Loss 50 / 50 Other: # Voids 7 Date of Last Bowel Movement 06/02/18 06/02/18 # Bowel Movements 3 <Marcus Milligan - 06/05/18 15:26> Vital Signs 06/04/18 12:22 06/04/18 12:30 06/04/18 12:45 Temperature 98.6 F Pulse Rate 90 96 H 92 H Respiratory Rate 11 L 15 15 Blood Pressure 125/58 L 127/60 140/82 Pulse Oximetry 90 L 96 96 06/04/18 13:00 06/04/18 13:15 06/04/18 13:30 Temperature Pulse Rate 86 84 83 Respiratory Rate 16 16 16 Blood Pressure 144/74 H 144/74 H 143/72 H Pulse Oximetry 94 L 95 93 L 06/04/18 13:40 06/04/18 16:00 06/04/18 19:18 Temperature 98.5 F 98.4 F Pulse Rate 83 84 Respiratory Rate 15 17 18 Blood Pressure 143/72 H 121/70 Pulse Oximetry 90 L 92 L 06/04/18 19:51 06/05/18 00:00 06/05/18 04:00 Temperature 99.1 F 98.6 F 98.4 F Pulse Rate 71 70 69 Respiratory Rate 18 17 18 Blood Pressure 115/65 110/58 L 119/71 Pulse Oximetry 95 93 L 94 L 06/05/18 08:00 Temperature 97.4 F L Pulse Rate 66 Respiratory Rate 18 Blood Pressure 117/67 Pulse Oximetry 93 L Intake & Output 06/04/18 06/05/18 06/05/18 18:59 06:59 18:59 Intake Total 750 / 750 2049 1000 / 1000 Output Total 50 / 50 Balance 700 / 700 2049 1000 / 1000 Weight 89.4 kg Intake: IV 150 / 150 2049 1000 / 1000 LR 1000 mL Inj 1,000 ML @ 100 1000 / 1000 1000 / 1000 mls/hr IV.CONT .Q10H [facility] Rx#: [id number] Cleocin 600 mg/NS Premix 600 mg 50 / 50 1050 / 1050 In 50 ml @ 100 mls/hr IV.SIG Q8H [facility] Rx#:[id number] Ancef 1 GM Premix Inj 2 gm In 100 / 100 100 ml @ 0 mls/hr IV.SIG .STK- [facility] Rx#:[id number] Anesthesia Amount 600 / 600 Output: Estimated Blood Loss 50 / 50 Other: # Voids 7 Date of Last Bowel Movement 06/02/18 06/02/18 # Bowel Movements 3 <Blanke IIIRashi H - 06/05/18 10:50> Narrative: General: Well-developed, alert, and in no acute distress standing at bedside. HEENT: Atraumatic, PERRL, non-icteric sclera and no conjunctival injection, moist mucous membranes Neck: Supple, trachea midline Cardiac: Regular rate and rhythm without murmur Pulmonary: Non-labored breathing. Lungs clear to auscultation bilaterally with good air movement Abdomen: Normal bowel sounds, soft and non-tender without rebound or guarding Extremities: No edema, 2+ pedal pulses, capillary refill less than 2 seconds Right upper extremity: Splint dressing c/d/i. Sensation and motor function intact with ability to move fingers freely; pain controlled; no complaint of numbness/tingling; preserved capillary refill; minimal swelling <Rashi Lam III H - 06/05/18 10:50> Assessment and Plan - Assessment (1) Right radial fracture Code(s): S52.91XA - Unspecified fracture of right forearm, initial encounter for closed fracture Status: Acute (2) Fracture of right ulna Code(s): S52.201A - Unspecified fracture of shaft of right ulna, initial encounter for closed fracture Status: Acute (3) History of venous thromboembolism Code(s): Z86.718 - Personal history of other venous thrombosis and embolism Status: Acute (4) COPD (chronic obstructive pulmonary disease) Code(s): J44.9 - Chronic obstructive pulmonary disease, unspecified Status: Acute (5) Depression Code(s): F32.9 - Major depressive disorder, single episode, unspecified Status : Acute <Marcus Milligan - 06/05/18 15:26> (1) Right radial fracture Code(s): S52.91XA - Unspecified fracture of right forearm, initial encounter for closed fracture Status: Acute (2) Fracture of right ulna Code(s): S52.201A - Unspecified fracture of shaft of right ulna, initial encounter for closed fracture Status: Acute (3) History of venous thromboembolism Code(s): Z86.718 - Personal history of other venous thrombosis and embolism Status: Acute (4) COPD (chronic obstructive pulmonary disease) Code(s): J44.9 - Chronic obstructive pulmonary disease, unspecified Status: Acute (5) Depression Code(s): F32.9 - Major depressive disorder, single episode, unspecified Status : Acute <Rashi Lam III - 06/05/18 10:41> - Assessment and Plan Patient is a 63-year-old woman with a past medical history significant for the DVT/PE, COPD and depression who presented with right-sided radial and ulnar fractures and is POD#1 of ORIF of distal radius. Surgery performed by Dr Michi Sanchez. 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 Electrolytes: monitor and replete as needed Nutrition: Regular diet as tolerated after surgery GI prophylaxis: not indicated VTE prophylaxis: Took xarelto yesterday, restart tomorrow Cleared for DC today Pt DW Dr Milligan <Carole CABEZASRashi H - 06/05/18 10:50> - Attending Attestation The exam, history, and the medical decision-making described in the above note were completed with the assistance of the resident physician. I reviewed and agree with the findings presented. I attest that I had a [id number] encounter with the patient on the same day, and personally performed and documented my assessment and findings in the medical record. s/p ORIF R distal radius fracture POD#1 tolerating pain well Vit D very low, will send out with replacement can go back to [place] with PCP and ortho follow up there recommended BMD testing there when fracture healed better <Marcus Milligan - 06/05/18 15:26>
[2018-06-05] MEDS ORDERED: Rivaroxaban 20 MG Tablet PO SCH (12:00)
--- NOTE | 2018-06-06 11:15 | P.DS ---
Date of admission: 06/03/18 19:41 Primary care physician: No Primary Care Physician Brief History from admission: reviewed and discussed resident histories and ROS and documented in H&P on . Interval history: doing well this morning, anxious to have her surgery. She is thirsty. she is moving her fingers but does have some pain with it. no f/c/n/v/d. DS: Medications - Discharge Medications Prescriptions: calcium carbonate [Calcium 600] 600 mg PO BID 30 Days #60 tab cholecalciferol (vitamin D3) [Vitamin D3] 2,000 unit PO DAILY #30 cap oxycodone-acetaminophen 2 tab PO Q4H PRN 3 Days #36 tab PRN Reason: See Dose Instructions DS: Summary Hospital Course: Patient had a intra-articular distal radius fracture. She had ORIF on June [address] Michi Sanchez. She tolerated the surgery well. She was found to have low vitamin D (9.6 25OH)and was sent home with replacement. She was also recommended bone mineral density testing when the fracture is healed. She was traveling from [place], so she will follow-up with a PCP and orthopedist there. - Time Spent with Patient Total time spent providing and/or coordinating discharge services: Less than 30 minutes - Quality: VTE Deep Vein Thrombosis/Pulmonary Embolism Present on Admission: No Exam Vital signs: Intake & Output 06/05/18 06/06/18 06/06/18 18:59 06:59 18:59 Intake Total 1000 / 1000 Balance 1000 / 1000 Intake: IV 1000 / 1000 LR 1000 mL Inj 1,000 ML @ 100 1000 / 1000 mls/hr IV.CONT .Q10H [facility] Rx#: [id number] Results Procedures completed during hospitalization: Patient had a intra-articular distal radius fracture. She had ORIF on June [address] Michi Sanchez. - Impressions ITS Impressions Chest X-Ray 06/03/18 18:37 CONCLUSION: Negative examination. Wrist X-Ray 06/04/18 00:00 CONCLUSION: Status post ORIF of right distal radial fracture with hardware in good position. Discharge Plan - Discharge Disposition Patient Disposition: 01 Discharge Home - Discharge Condition Condition: Stable - Discharge Order Discharge Orders: Discharge Order (Routine); Ordered 06/05/18 Ordered By: Rashi Lam III - Discharge Details Anticipated Discharge Date: 06/05/18 Discharge Comment: Can discharge after she takes daily dose of xarelto - Physicians Team Primary Care Provider: Primary Care Reena Johnson Attending Provider: Marcus Milligan Other Providers: Michi Sanchez MD
== END 2018-06-05 11:57 | disposition home or self-care (01) ==
LOC: NEPE 17:23 → NEDA 19:41 → N06 21:00
PROVIDERS: ADMIT Family Medicine; ATTEND Family Medicine